=== PATIENT | female | born 1925 | race Caucasian/White ===

== ENCOUNTER 2016-10-25 15:07 | Emergency (ER) | payer OTHER ==
[~2016-10-25] VITALS: Ht 157.5 cm; Wt 73.4 kg
[~2016-10-25 15:07] MED LIST: ASPI81TA82 PO; METO25 PO; PLAV75TA PO
[2016-10-25 15:11] VITALS: PULSE 96; RESP 20; TEMP 98.2; O2SAT 96
[2016-10-25 16:05] VITALS: BP 133/77
[2016-10-25 16:15] VITALS: RESP 20; O2SAT 94
[2016-10-25] MEDS ORDERED: methylPREDNISolone SOD SUCC 125 MG/2 ML VIAL IVP ONE (16:15)
[2016-10-25] MEDS ORDERED: SODIUM CHLORIDE 0.9% FLUSH 5 ML FLUSH IVF PRN (16:15)
[2016-10-25] MEDS: RESP: ALBUTEROL 2.5 MG/IPRATROPIUM 0.5 MG NEB (SCH) INH ×2 (16:16→16:17)
--- NOTE | 2016-10-25 16:18 | PD ---
HPI . Dyspnea Chief Complaint: Respiratory Symptoms Time Seen by Provider: 15:56 Travel History International Travel<30 days: Yes Contact w/Intl Traveler<30days: Yes Name of Country Traveled to: [place] Traveled to known affect area: No History of Present Illness HPI Patient presents complaining with cough and shortness of breath which started acutely today. He states that she felt well yesterday. She states that she has had purulent sputum production but has not been running a fever. She has not tried anything for this at home prior to arrival. She notes no exacerbating or relieving factors. She does report previous similar symptoms but she does have it very frequently. She does not have to take any respiratory medications at home on a regular basis. PFSH Past Medical History Hx Anticoagulant Therapy: Yes (ASA, HX OF BLOOD CLOTS) Arthritis: Yes (BACK) Asthma: No Autoimmune Disease: No Blood Disorders: No Anxiety: No Depression: No Heart Rhythm Problems: No Cancer: Yes (SKIN CANCERS ON HANDS & NOSE) Cardiovascular Problems: No High Cholesterol: No Chemotherapy: No Chest Pain: No Congestive Heart Failure: No COPD: No Cerebrovascular Accident: No Diabetes: No Diminished Hearing: No Deep Vein Thrombosis: Yes (left leg) Endocrine: No Gastrointestinal Disorders: No Glaucoma: Yes Genitourinary: No Headaches: No Hypertension: No Immune Disorder: No Implanted Vascular Access Dvce: Yes Kidney Stones: No Musculoskeletal: Yes Neurologic: No Psychiatric: No Reproductive: No Respiratory: Yes (BRONCHITIS) Integumentary: Yes Immunizations Current: Yes ([id number]) Migraines: No Myocardial Infarction: No Radiation Therapy: No Renal Failure: No Seizures: No Sickle Cell Disease: No Thyroid Disease: No Menopausal: Yes Past Surgical History Abdominal Surgery: No AICD: No Arteriovenous Shunt: No Cardiac Surgery: No Ear Surgery: No Endocrine Surgery: No Eye Surgery: Yes (BILATERAL CATARACT REMOVAL ) Genitourinary Surgery: No Gynecologic Surgery: No Insulin Pump: No Joint Replacement: No Neurologic Surgery: No Oral Surgery: Yes (DENTURE IMPLANTS) Pacemaker: No Thoracic Surgery: No Other Surgery: Yes (BONE GRAFT- CHIN FOR DENTAL IMPLANTS/LLE angiogram with TPA ) Social History Alcohol Use: Yes ("A FEW GLASSES OF WINE A DAY, OR SO") Tobacco Use: No (SMOKED CIGS 60+ YRS - APPROX 1 PPD) Substance Use: No Allergies-Medications (Allergen,Severity, Reaction): Coded Allergies: Amoxicillin (Verified Allergy, Severe, HIVES, ITCHING, 11/15/13) Reported Meds & Prescriptions Reported Meds & Active Scripts Active Reported Metoprolol Tartrate 25 mg (Metoprolol Tartrate) 25 Mg Tab 25 Mg PO Q8 Plavix (Clopidogrel Bisulfate) 75 Mg Tab 75 Mg PO DAILY Aspir-81 (Aspirin) 81 Mg Tab 81 Mg PO HS Review of Systems Except as stated in HPI: all other systems reviewed are Neg General / Constitutional: No: Fever, Chills Eyes: No: Drainage, Redness HENT: No: Sore Throat, Rhinitis, Rhinorrhea, Congestion Cardiovascular: Positive: Chest Pain or Discomfort (she states that she fell and injured her chest wall and weak ago. She has had left lower rib cage pain since that time.) Respiratory: Positive: Cough, Shortness of Breath, Wheezing Gastrointestinal: No: Nausea, Vomiting, Diarrhea Musculoskeletal: Positive: Pain (left lower anterior rib pain since a fall a week ago.) Neurologic: No: Weakness, Dizziness Physical Exam Narrative GENERAL: This is a spry, healthy appearing 89-year-old does have audible wheezing. SKIN: Warm and dry. HEAD: Atraumatic. Normocephalic. EYES: Pupils equal and round. ENT: No nasal bleeding or discharge. Mucous membranes pink and moist. NECK: Trachea midline. No cervical lymphadenopathy. CARDIOVASCULAR: Regular rate and rhythm. RESPIRATORY: No accessory muscle use. Audible wheezing. Good air movement. Coarse expiratory wheezing heard throughout. GASTROINTESTINAL: Abdomen soft, non-tender, nondistended. MUSCULOSKELETAL: No obvious deformities. No edema. NEUROLOGICAL: Awake and alert. No obvious cranial nerve deficits. Motor grossly within normal limits. Normal speech. PSYCHIATRIC: Appropriate mood and affect; insight and judgment normal. Data Data Last Documented VS Vital Signs Date Time Temp Pulse Resp B/P Pulse Ox O2 Delivery O2 Flow Rate FiO2 10/25/16 16:15 20 94 Room Air 10/25/16 16:05 133/77 10/25/16 15:11 98.2 96 Orders Complete Blood Count With Diff (10/25/16 16:01) Basic Metabolic Panel (Bmp) (10/25/16 16:01) B-Type Natriuretic Peptide (10/25/16 16:01) Troponin I (10/25/16 16:01) Iv Access Insert/Monitor (10/25/16 16:01) Electrocardiogram (10/25/16 16:01) Oximetry (10/25/16 16:01) Chest, Single Ap (10/25/16 16:01) Sodium Chloride 0.9% Flush (Ns Flush) (10/25/16 16:15) Methylprednisolone So Succ Inj (Solumedr (10/25/16 16:15) Albuterol-Ipratropium Neb (Duoneb Neb) (10/25/16 16:15) Labs Laboratory Tests Test 10/25/16 16:15 White Blood Count 5.7 TH/MM3 Red Blood Count 4.07 MIL/MM3 Hemoglobin 13.6 GM/DL Hematocrit 39.7 % Mean Corpuscular Volume 97.5 FL Mean Corpuscular Hemoglobin 33.4 PG Mean Corpuscular Hemoglobin 34.2 % Concent Red Cell Distribution Width 12.2 % Platelet Count 238 TH/MM3 Mean Platelet Volume 7.9 FL Neutrophils (%) (Auto) 62.0 % Lymphocytes (%) (Auto) 19.0 % Monocytes (%) (Auto) 11.9 % Eosinophils (%) (Auto) 5.5 % Basophils (%) (Auto) 1.6 % Neutrophils # (Auto) 3.5 TH/MM3 Lymphocytes # (Auto) 1.1 TH/MM3 Monocytes # (Auto) 0.7 TH/MM3 Eosinophils # (Auto) 0.3 TH/MM3 Basophils # (Auto) 0.1 TH/MM3 CBC Comment DIFF FINAL Differential Comment Sodium Level 142 MEQ/L Potassium Level 4.3 MEQ/L Chloride Level 107 MEQ/L Carbon Dioxide Level 23.6 MEQ/L Anion Gap 11 MEQ/L Blood Urea Nitrogen 35 MG/DL Creatinine 1.40 MG/DL Estimat Glomerular Filtration 35 ML/MIN Rate Random Glucose 108 MG/DL Calcium Level 9.8 MG/DL Troponin I LESS THAN 0.02 NG/ML B-Type Natriuretic Peptide 72 PG/ML MDM Medical Decision Making Medical Screen Exam Complete: Yes Emergency Medical Condition: Yes Interpretation(s) EKG shows a normal sinus rhythm with no acute ischemic changes. She has a single PVC. Otherwise she has a normal EKG. Differential Diagnosis Differential diagnosis of dyspnea includes but is not limited to congestive heart failure, pneumonia, wheezing, pneumothorax, pulmonary embolism Narrative Course This is a very healthy 89-year-old female who presents with the acute onset of cough and wheezing. I will work her up to rule out CHF or ACS. I will treat her wheezing with Duonebs and Solu-Medrol. 5:10 PM CBC has a normal white count of 5.7. H&H is 13.6 and 39.7. Electrolytes are normal. Her troponin is less than 0.02 and her BNP is normal at 72. Chest x-ray shows no infiltrate or CHF. Chest x-ray was independently reviewed by me. The patient's lungs are clear. She states she feels much better. Diagnosis Primary Impression: Acute bronchitis Qualified Code: J20.9 - Acute bronchitis, unspecified organism Patient Instructions: Acute Bronchitis (ED), General Instructions Med/Other Pt SpecificInfo: Prescription(s) given Scripts Guaifenesin ER (Mucus Relief ER)600 Mg Tab1,200 Mg PO BID PRN (CHEST CONGESTION AND/OR COUGH) #20 TAB Ref 0 Prov:Malorie Persaud MD 10/25/16 Albuterol 18 GM Inh (Ventolin Hfa 18 GM Inh)90 Mcg/Act Aer2 Puff INH Q4H PRN ( SHORTNESS OF BREATH) #1 INHALER Ref 0 Prov:Malorie Persaud MD 10/25/16 Prednisone (48) 10 mg tab Dose Pack 10 Mg Dspk10 Mg PO DIRECTED #1 DSPK Ref 0 Prov:Malorie Persaud MD 10/25/16 Disposition: 01 DISCHARGE HOME Condition: Stable Malorie Persaud MD Oct 25, 2016 16:18
[2016-10-25 16:35] LABS: AUTOMATED NEUTROPHIL # 3.5 TH/MM3 (1.8-7.7); BASOPHIL # 0.1 TH/MM3 (0-0.2); BASOPHIL % 1.6 % (0.0-2.0); EOSINOPHIL # 0.3 TH/MM3 (0-0.4); EOSINOPHIL % 5.5 % (0.0-4.0); HEMATOCRIT 39.7 % (35.0-46.0); HEMO FLAGS DIFF FINAL; LYMPHOCYTE # 1.1 TH/MM3 (1.0-4.8); MEAN CELL VOLUME 97.5 FL (80.0-100.0); MEAN CORPUSCULAR HEMOGLOBIN 33.4 PG (27.0-34.0); MEAN CORPUSCULAR HGB CONC 34.2 % (32.0-36.0); MONO % 11.9 % (0.0-8.0); PLATELET COUNT 238 TH/MM3 (150-450); RED BLOOD COUNT 4.07 MIL/MM3 (4.00-5.30); RED CELL DISTRIBUTION WIDTH 12.2 % (11.6-17.2); WHITE BLOOD COUNT 5.7 TH/MM3 (4.0-11.0)
[2016-10-25 16:47] LABS: CHLORIDE 107 MEQ/L (98-107); POTASSIUM 4.3 MEQ/L (3.5-5.1); SODIUM (NA) 142 MEQ/L (136-145)
[2016-10-25 16:50] LABS: ANION GAP 11 MEQ/L (5-15); BICARBONATE 23.6 MEQ/L (21.0-32.0); BLOOD UREA NITROGEN 35 MG/DL (7-18)
[2016-10-25 16:53] LABS: GLOMERULAR FILTRATION RATE 35 ML/MIN (>89)
--- NOTE | 2016-10-25 17:10 | RADHPO ---
EXAM DATE/TIME: 10/25/2016 16:55 [facility] COMPARISON: No previous studies available for comparison. INDICATIONS : Cough, congestion, left chest pain MEDICAL HISTORY : Deep venous thrombosis. SURGICAL HISTORY : None. ENCOUNTER: Initial ACUITY: 2 days PAIN SCORE: 4/10 LOCATION: Left chest FINDINGS: Trace atelectasis of both bases. No large effusion seen. No pneumothorax. Heart size upper limits of normal. Thoracic aorta is tortuous. CONCLUSION: Minimal bibasilar atelectasis. Darwin Miranda MD on October 25, 2016 at 17:08 Board Certified Radiologist. This report was verified electronically.
[2016-10-25 17:15] VITALS: BP 130/71; PULSE 94; RESP 20; O2SAT 95
[2016-10-25] MEDS ORDERED: PRED10PA2 PO (17:18)
[2016-10-25] MEDS ORDERED: GUAI600T11 PO (17:18)
[2016-10-25] MEDS ORDERED: VENTAER INH (17:18)
--- NOTE | 2016-10-26 23:57 | EKG ---
Date Performed: 10/25/2016 Time Performed: 16:12:46 PTAGE: 89 years EKG: Sinus rhythm with PVC(s) Borderline ECG PREVIOUS TRACING : 11/09/2013 17.49 DOCTOR: Elver Meeks Interpretating Date/Time 10/26/2016 23:49:30
[2017-02-23] MEDS ORDERED: PLAV75TA29 PO (14:26)
[2017-02-23] MEDS ORDERED: ASPI1TAB69 PO (14:26)
== END 2016-10-25 17:40 | disposition home or self-care (01) ==
LOC: PHED 15:07
DX: J20.9 Acute bronchitis, unspecified (principal); Z87.891 Personal history of nicotine dependence
CPT/HCPCS: 71010; 80048; 83880; 84484; 85025; 93005; 94640; 94664; 96374; 99284; J2930